=== PATIENT | female | born 1940 | race Caucasian/White ===

== ENCOUNTER 2025-05-22 09:36 | Outpatient (AMB) | payer MEDICARE, SELFPAY ==
--- NOTE | 2025-05-22 09:41 | MHC.PC.OV ---
Vital Signs 05/22/25 10:02 Height 5 ft 5.5 in Weight 139 lb 2 oz BMI 22.8 BP 178/74 H Blood Pressure Location Rt brachial Position Sitting Respiration 16 Pulse 83 Pulse Source Pulse Oximeter Temp 97.5 F Temp Source Oral Pulse Oximetry (%) 97 Oxygen Delivery Method Room Air Intake Visit Reasons: PACKING MACHINE FEEDER Hypertension Intake Note: patient here for new patient visit/ Hypertension Lamps Tester And Inspector Required: No Is last menstrual period known: No Post menopausal: No Patient : No Allergies nitrofurantoin (From Macrobid) Allergy (Intermediate, Verified 05/22/25 09:57) Itching Medication List - Last Reconciled 05/22/25 by Sheng Pinto MD amlodipine 5 mg PO DAILY losartan 50 mg PO DAILY [id number] 333-1.7 mg (Airborne (ascorbate sodium)) tabs PO naproxen sodium (Aleve) 440 mg PO DAILY Tobacco use date assessed: 05/22/25 Fall risk assessment: No Falls in past year Last assessed Fall Risk: 05/22/25 Dental Screening Dental Screen Date: 05/22/25 Did you have a dental visit in the last 12 months?: No Did you have a dental problem in the last 6 months where you did not have access to dental care?: No Was dental information given to patient?: Patient has dentist HPI PACKING MACHINE FEEDER Hypertension HPI Details New Patient? ?? Prior PCP:[facility] Last office visit/CPE:? Acute issue(s):? HTN; [place]. BP 131/82 this AM. ?? PMHx:?HTN, Valve Regurgitation - Trace. (Had seen Dr Epperson but discharged) - Due next year for Echo. Osteoarthritis. Mild Neuropathy b/L feet. Basal cell SurgHx:?Basal Cell removal [place] SocHx:? Quit cigs 1989. EtOH 1 glass per evening not every night PFSH Medical History (Updated 05/22/25 @ 10:43 by Arben Bianchi) Osteoporosis Arthritis High blood pressure Social History Housing: House Patient Tobacco Use Status: Never used Tobacco e-Cigarette/Vaping Use: Never Used Second Hand Smoke Exposure: No service: No Current occupational status: retired Current occupational exposures/hazards: No Cognitive needs: No Hearing needs: No Vision needs: Yes Questionnaire PHQ-9 Over the last 2 weeks, how often have you been bothered by any of the following problems? 1. Little interest or pleasure in doing things: not at all 2. Feeling down, depressed, or hopeless: not at all 3. Trouble falling or staying asleep, or sleeping too much: not at all 4. Feeling tired or having little energy: not at all 5. Poor appetite or overeating: not at all 6. Feeling bad about yourself - or that you are a failure or have let yourself or your family down: not at all 7. Trouble concentrating on things, such as reading the newspaper or watching television: not at all 8. Moving or speaking so slowly that other people could have noticed. Or the opposite - being so fidgety or restless that you have been moving around a lot more than usual: not at all 9. Thoughts that you would be better off or of hurting yourself in some way: not at all Total score: 0 Depression Screening Interpretation: Negative Depression Screening Done: Yes 98335 - PHQ-9 Billing: Yes Source: Developed by Drs. Adis Worthington, Sallie Sorensen, Israel Schneider and colleagues, with an educational brittani from [employer]. Thrive Questionnaire Date Thrive assessed: 05/22/25 I am a: Patient What is your living situation today?: I have a steady place to live Within the past 12 months, did the food you bought not last and you didn't have the money to get more?: Never true Within the past 12 months, did you worry whether your food would run out before you got money to buy more?: Never true Do you have trouble paying for medicines?: No Do you have trouble getting transportation to medical appointments?: No Do you have trouble paying your heating and electricity bill?: No Do you have trouble taking care of your child, family member or friend?: No Do you have trouble with day-to-day activities such as bathing, preparing meals, shopping, managing finances, etc.?: No Are you currently unemployed and looking for a job?: No Are you interested in more education?: No Please select the resources that you would like help with: None Currently or been in a relationship where the following occur: No concerns reported THRIVE Score: 0 AUDIT C Alcohol Use Questionnaire (AUDIT-C) 1. How often do you have a drink containing alcohol?: 4 or more times a week (wine with dinner) 2. How many drinks containing alcohol do you have on a typical day when you are drinking?: 1 or 2 3. How often do you have six or more drinks on one occasion?: Never Total Score: 4 Score Reviewed/Action Taken: Yes STANTON-7 AMB Questionnaire STANTON-7 Date STANTON - 7 assessed: 05/22/25 Feeling nervous, anxious, or on edge: 0 = Not at all Not being able to stop or control worryin = Not at all Worrying too much about different things: 0 = Not at all Trouble relaxin = Not at all Being so restless that it is hard to sit still: 0 = Not at all Becoming easily annoyed or irritable: 0 = Not at all Feeling afraid as if something awful might happen: 0 = Not at all Total STANTON-7 score (0-4 normal; 5-9 mild; 10-14 moderate; 15-21 severe): 0 Source: Developed by Drs. Adis Worthington, Sallie Sorensen, Israel Schneider and colleagues, with an educational brittani from [employer]. STANTON-7 Assessment Billing STANTON-7 Assessment Tool: STANTON-7 Assessment 14928 Review of Systems Const Denies chills, Denies fatigue, Denies fever(s), Denies headache(s) and Denies weakness ENT Denies dizziness and Denies headache(s) Card Denies chest pain, Denies lightheadedness, Denies dyspnea and Denies other (Palpitations) Resp Denies cough, Denies dyspnea, Denies wheezing and Denies other ( shortness of breath) Musc Denies numbness and Denies tingling Neuro Denies dizziness, Denies headache(s), Denies numbness, Denies tingling, Denies paresthesias and Denies weakness Psych Denies anxiety and Denies depression Endo Denies fatigue Aller/Immun Denies wheezing Physical exam (Primary Care) Vital Signs: Last Vital Signs Temp 97.5 F 05/22/25 10:02 Pulse 83 05/22/25 10:02 Resp 16 05/22/25 10:02 BP 178/74 H 05/22/25 10:02 Pulse Ox 97 05/22/25 10:02 Oxygen Delivery Method Room Air 05/22/25 10:02 BMI result Body Mass Index 22.8 Tobacco/Smoking Status: Tobacco use Status Tobacco use date assessed 05/22/25 05/22/25 10:01 Patient Tobacco Use Status Never used Tobacco 05/22/25 10:01 e-Cigarette/Vaping Use Never Used 05/22/25 10:01 PHQ-9: PHQ-9 Score PHQ-9: Total score 0 05/22/25 10:16 Depression Screening Interpretation: Negative Thrive Assessment: Date of Thrive Assessment Date Thrive assessed 05/22/25 05/22/25 10:10 Currently or been in a relationship where the following occur: No concerns reported Const General: no acute distress and well developed Nutritional Appearance: well nourished Orientation/consciousness: patient oriented x3 HENMT Head: Yes normocephalic and Yes atraumatic Eyes General: appearance normal, both eyes and all related structures Pupils: Equal, round and reactive pupils present EOM: EOMs intact bilaterally Resp Effort & Inspection: normal respiratory effort Auscultation: clear to auscultation bilaterally Cardio Rate: regular rate Rhythm: regular rhythm Heart sounds: S1 normal heart sound present, S2 normal heart sound present, no gallops, Murmur heart sound present and no rubs Neuro General: patient oriented x3 and gait normal Cranial nerves: Yes Equal, round and reactive pupils present Extrem Other: LE edema, trace edema R, 1+ edema L Psych Affect: normal affect Coding Level of Care Code New Pt Level 4 (40474) Diagnoses White coat syndrome with diagnosis of hypertension I10 High blood pressure I10 Heart valve regurgitation I38 Heart murmur R01.1 Osteoarthritis M19.90 History of basal cell cancer Z85.828 Lower extremity edema R60.0 Neuropathy G62.9 Laboratory exam ordered as part of routine general medical examination Z00.00 Additional Codes STANTON-7 Assessment Billing - STANTON-7 Assessment Tool: STANTON-7 Assessment 24812 ([id number]) PHQ-9 - 13948 - PHQ-9 Billing: Yes ([id number]) Assessment & Plan Assessment & Plan (1) White coat syndrome with diagnosis of hypertension: Code(s): I10 - Essential (primary) hypertension Category: Medical Plan: Blood pressure is high and patient notes that it is always high when she goes to the doctor's. She checks her blood pressures at home and typically they run around 130s/80s. She will bring in a log of blood pressures No changes to her blood pressure medication regimen today. I did ask her to continue monitoring her blood pressure at home and if blood pressures are higher than 140s/90s she should let me know would discuss adjusting her medication regimen. (2) High blood pressure: Code(s): I10 - Essential (primary) hypertension Category: Medical Plan: As above (3) Heart valve regurgitation: Code(s): I38 - Endocarditis, valve unspecified Category: Medical Plan: History of heart valve regurgitation. Patient was being followed with echocardiograms 3 years and is due next year. Echo ordered for next year (4) Heart murmur: Code(s): R01.1 - Cardiac murmur, unspecified Category: Medical Plan: Mild heart murmur As above the she as mild regurgitation and is followed with echocardiogram (5) Osteoarthritis: Code(s): M19.90 - Unspecified osteoarthritis, unspecified site Category: Medical Plan: Uses NSAIDs Stable (6) History of basal cell cancer: Code(s): Z85.828 - Personal history of other malignant neoplasm of skin Category: Medical Plan: Followed by [facility] Follow-up as recommended (7) Lower extremity edema: Code(s): R60.0 - Localized edema Category: Medical Plan: Mild lower extremity edema, 1+ on left and trace edema on right Advised watching salt in sodium in diet Advised elevating legs (8) Neuropathy: Code(s): G62.9 - Polyneuropathy, unspecified Category: Medical Plan: Patient notes some tingling and burning in her feet Unclear cause and checking labs May also be related to her lower extremity edema and I have advised her to elevate her legs more during her daytime. (9) Laboratory exam ordered as part of routine general medical examination: Code(s): Z00.00 - Encounter for general adult medical examination without abnormal findings Category: Medical Plan: Check labs Orders: Orders Microalbumin, Random (w Creat) Today I10 - Essential (primary) hypertension Lipid Panel Today Z00.00 - Encounter for general adult medical examination without abnormal findings UA CC w/rflx Micro + Cult Today Z00.00 - Encounter for general adult medical examination without abnormal findings Complete Blood Count Auto Diff Today Z00.00 - Encounter for general adult medical examination without abnormal findings Vitamin B12 and Folate Today E53.8 - Deficiency of other specified B group vitamins CA echo transthoracic complete 8 Months I38 - Endocarditis, valve unspecified Comprehensive [place]. Panel Fast Today Z00.00 - Encounter for general adult medical examination without abnormal findings TSH reflex Free T4 Today Z00.00 - Encounter for general adult medical examination without abnormal findings Vitamin D 25-OH Total Today E55.9 - Vitamin D deficiency, unspecified IRON PROFILE Today G62.9 - Polyneuropathy, unspecified Ferritin Today G62.9 - Polyneuropathy, unspecified
[2025-05-22 10:02] VITALS: BP 178/74; PULSE 83; RESP 16; TEMP 36.4; O2SAT 97; BMI 22.8
--- OUTSIDE RECORDS SUMMARY | 2025-05-22 10:37 | XMS_ITS | Clinical Summary ---
Author Organization [facility] Address [address] [address] Phone Care Team Providers Care Cellular Phone Repairer Name Role Phone Georges Cool MD Primary Care Provider + Allergies Active Allergy Reactions Criticality Noted Date Comments Nitrofurantoin 06/02/2023 Nitrofurantoin Monohyd/M-Cryst Rash Low 06/02 Medications amLODIPine (NORVASC) 5 MG tablet Take 1 tablet by mouth every morning. 05/24/2023 Active losartan (COZAAR) 25 MG tablet Take 1 tablet by mouth every morning. 05/03/2023 Active naproxen sodium (ALEVE) 220 MG tablet Take 220 mg by mouth 2 (two) times a day with meals. Active Active Problems Problem Noted Date Diagnosed Date Allergic rhinitis 06/02/2023 06/02/2023 Anxiety disorder 06/02/2023 06/02/2023 Aortic valve regurgitation 06/02/202306/02 Basal cell carcinoma (BCC) 06/02/202306/02 Benign colonic polyp 06/02/2023 06/02/2023 Benign paroxysmal positional vertigo 06/02/2023 06/02/2023 Cataract 06/02/2023 06/02/2023 Chronic obstructive pulmonary disease 06/02/2023 06/02/2023 Heartburn 06/02/2023 06/02/2023 Hemorrhoids 06/02/2023 06/02/2023 Hypercholesterolemia 06/02/2023 06/02/2023 Hypertension 06/02/2023 06/02/2023 Osteoarthritis of both knees 06/02/2023 Osteoporosis 06/02/2023 06/02/2023 Venous stasis dermatitis 06/02/2023 023 Syncope and collapse 06/02/2023 06/02/2023 Peripheral nerve disease 06/02/2023 023 Social History Tobacco Use Types Packs/Day Years Used Date Smoking Tobacco: Former Cigarettes Smokeless Tobacco: Never Tobacco Cessation:Counseling Given: Not Answered Education Answer Date Recorded Are you interested in more education? Not on larry e 06/02/2023 Are you concerned about learning? Not on file 06/02/2023 No 06/02/2023 No 06/02/2023 Digital Access Answer Date Recorded No 06/02/2023 No 06/02/2023 Reliable internet access at home? Not on file 06/02/2023 Device with a working camera? Not on file Comments Unknown Sex and Gender Information Value Date Recorded Sex Assigned at Not on file Legal Sex Female 4:30 PM EDT Gender Identity Not on file Sexual Orientation Not on file Last Filed Vital Signs Vital Sign Reading Time Taken Comments Blood Pressure 182/81 06/02/2023 5:27 PM EDT Pulse 81 06/02/2023 5:27 PM EDT Temperature 37.1 C (98.8 F) 06/02/2023 5:27 PM EDT Respiratory Rate 16 06/02/2023 5:27 PM EDT Oxygen Saturation 97% 06/02/2023 5:27 PM EDT Inhaled Oxygen Concentration - - Weight - - Height - - Body Mass Index - - Plan of Treatment Health Maintenance Due Date Last Done Comments Adult Td,Tdap Booster 1940 CREATININE LEVEL 1940 POTASSIUM LEVEL 1940 DEPRESSION SCREENING 1952 ZOSTER VACCINES (1 of 2) 01/28/1990 OSTEOPOROSIS SCREENING INITIAL (ONE-TIME) 01/28/2005 RSV VACCINE (1 - 1-dose 75+ series) 01/28/2015 PNEUMOCOCCAL VACCINES (50+ years) (2 of 2 - PPSV23) 08/25/2016 06/30/2016 BLOOD PRESSURE 12/02/2023 06/02/2023 INFLUENZA VACCINE (#1) 2025 , 05/27/2021, 05/12/2020, Additional history exists COVID-19 VACCINE (3 - season) 2025 12/11/2020, 11/19/2020 HEPATITIS A VACCINES Aged Out No long er eligible based on patient's age to complete this topic HIB VACCINES Aged Out No longer eligi ble based on patient's age to complete this topic MENINGOCOCCAL VACCINES (ACWY) Aged Out No longer eligible based on patient's age to complete this topic MENINGOCOCCAL VACCINES (B) Aged Out N o longer eligible based on patient's age to complete this topic Medical Devices Not on file Insurance [employer] MEDEX SUPPLEMENT MEDICARE PART A & B [employer] MEDEX SUPPLEMENT MEDICARE PART A & B [employer] MEDEX SUPPLEMENT MEDICARE PART A & B [employer] MEDEX SUPPLEMENT MEDICARE PART A & B MEDICARE PART A & B [employer] MEDEX SUPPLEMENT MEDICARE PART A & B Care Teams Cellular Phone Repairer Relationship Specialty Start Date End Date Georges Cool MD [address] [place] [id number] PCP - General Internal Medicine 06/02/23 Additional Source Comments The information contained in this document represents components of the legal health record. It is not the complete legal health record.[facility]
--- OUTSIDE RECORDS SUMMARY | 2025-05-22 10:38 | XMS_ITS | Data Portability ---
Author Organization [facility], [employer] Address [address] [place] [address] Care Team Providers Care Geomatics Professor Name Role Phone PAPO NIETO Primary Care Provider Assessment No assessment recorded. Plan of Treatment Reminders Order Date Submit Date Provider Last Modified By Organization Details Last Modified Time Details Appointments None record ed. Lab None record ed. Referral None record ed. Procedures None record ed. Surgeries None record ed. Imaging None record ed. Medication Orders None record ed. Patient TargetsNo targets recorded. Patient InstructionsNo instructions recorded. Reason for Referral None Reported. Problems Name Problem SNOMED Code Status Onset Date Resolution Date Notes Provider Name and Address Organization Details Recorded Time Pain of joint of knee 5866680584 Active 2021 Status : 'A'; Not Available [facility] 4 11:58:38 Primary gonarthrosi s, bilateral 139076010 Active 2024 Carly Javed PA-C [address], [place], [address] , [facility] 5 15:32:27 Problem Notes None recorded. Procedures Surgical History Date Name Laterality Status Provider Name and Address Organization Details Recorded Time 5 Knee Kenalog 40 1cc Injection, Bilateral completed Carly Javed PA-C [address], [place], [address], [facility] 12/11/2024 15:32:28 4 Knee Kenalog 40 1cc Injection, Bilateral completed Carly Javed PA-C [address], [place], [address], [facility] 06/13/2024 10:42:03 4 Sports Knee 4&1 completed Carly Javed PA-C [address], [place], [address], [facility] 12/18/2023 12:15:21 Imaging Results None recorded. Procedure Notes None recorded. Medical Equipment None Reported. Allergies Allergen ID Allergen Name Allergen Category Reaction Reaction Severity Criticality Documentation Date Start Date Code Code System Note Provider Name and Address Organization Details Recorded Time 40908 Macrobid medicatio n Not available Not available Not available 10/23/20232020 67045 1 RxNorm Not Available [facility] 12:44:46 Medications Name Sig Start Date Stop Date Status Note LastModified by Organization Details LastModified Time losartan 50 mg tablet TAKE 1 TABLET BY MOUTH DAILY active Not Available Not Available No t Available amoxicillin 500 mg capsule TAKE 1 CAPSULE BY MOUTH THREE TIMES DAILY FOR 7 DAYS. MAY HAVE EXTRA 05/02 completed Not Available Not Available Not Available clobetasol 0.05 % topical cream APPLY TOPICALLY TO THE AFFECTED AREA TWICE DAILY active Not Available Not Available No t Available amlodipine 5 mg tablet TAKE 1 TABLET BY MOUTH DAILY active Not Available Not Available No t Available losartan 25 mg tablet TAKE 1 TABLET BY MOUTH DAILY active Not Available Not Available No t Available cephalexin 500 mg tablet TAKE 1 TABLET BY MOUTH TWICE DAILY FOR 10 DAYS 05/02 completed Not Available Not Available Not Available mupirocin 2 % topical ointment APPLY TOPICALLY TO THE AFFECTED AREA 1 TO 2 TIMES DAILY UNTIL HEALED active Not Available Not Available No t Available Vitals Date Recorded Body height Body mass index (BMI) Body weight Provider Name and Address Organization Details Last Updated DateTime 12/11/2024 165.1 cm 23 kg/m2 04454.75 g ysabel covarrubias [facility] 12/11/2024 15:23:02 Date Recorded Body height Body mass index (BMI) Body weight Provider Name and Address Organization Details Last Updated DateTime 12/18/2023 165.1 cm 23 kg/m2 79174.75 g claudia reveles [facility] 12/18/2023 11:27:35 Date Recorded Body height Body mass index (BMI) Body weight Provider Name and Address Organization Details Last Updated DateTime 05/02/2024 165.1 cm 23 kg/m2 51647.75 g [facility] 05/02/2024 15:26:56 Date Recorded Body height Body mass index (BMI) Body weight Provider Name and Address Organization Details Last Updated DateTime 06/13/2024 165.1 cm 23 kg/m2 07405.75 g [facility] 06/13/2024 10:04:53 Social History None recorded. Functional Status None recorded. Mental Status None recorded. Family History Nothing Reported. Medical History No medical history recorded. Gynecological HistoryNo gynecological history recorded. Obstetrics History GPAL:G 0 P 0 0 0 0 Past Encounters Encounter ID Performer Location Encounter Start Date Encounter Closed Date Diagnosis/Indication Diagnosis SNOMED-CT Code Diagnosis ICD10 Code Diagnosis IMO Codes Diagnosis Note [id number] Carly Javed PA-C [facility] [address] [place] [address] 12/18/2023 11:12:18 01/05/2024 05:43:51 Osteoarthritis of right knee joint 7769473597 96739 M17.11 [id number] Carly Javed PA-C [facility] [address] [place] [place] [address] 05/02/2024 15:12:42 05/24/2024 10:03:42 Osteoarthritis of right knee joint 8987297962 06970 M17.11 [id number] Carly Javed PA-C [facility] [address] [place] [address] 06/13/2024 09:48:04 07/09/2024 12:36:08 Primary gonarthrosis, bilateral 570704344 M17.0 [id number] Carly Javed PA-C [facility] [address] [place] [address] 12/11/2024 15:13:10 12/19/2024 10:40:18 Primary gonarthrosis, bilateral [id number] M17.0 [id number] Health Concerns Section Related Observation LastModified by Organization Detai ls LastModified Time None Recorded Concern Status LastModified by Organization Details LastModified Time None Recorded Advance Directives Directive None Recorded Payers Insurance Date Sequence Insurance Name Policy Number Policy Mejia Covered Member ID Mejia Member ID Guarantor Name 12/19/2024 2 [place] [id number] Missy Lema [id number] Missy Lema 12/11/2024 1 [place] B[place] [facility] [employer] Missy Lema [id number] Missy Lema Notes Date Note Type Note Provider Name and Address Organization Details Recorded Time 12/18/2023 text/html I am seeing the patient today under the supervision of Dr. Childers who was available but who did not see the patient. HPI: Patient presenting today with known osteoarthritis of the right knee. Has been responding favorably to conservative treatment. Here today for a cortisone injection. Denies recent injury. No new systemic complaints. Past family, medical, social history and review of systems has been reviewed, updated, and is located in the patient s chart. Examination: Examination of the right knee reveals no effusion, erythema, or warmth. Injection site benign. Decreased range of motion. Point tender medial joint line. Calf is soft and nontender. 5/5 strength knee flexion and extension. Impression: Right knee osteoarthritis Plan: The patient was thoroughly counseled today regarding their knee condition, its natural history, and conservative versus surgical treatment options. The patient is interested in receiving an injection with corticosteroid. The right knee was prepped sterilely and an injection was administered utilizing 40mg of Kenalog and 4cc of 0.25% Marcaine. The patient tolerated the procedure well. Post-injection precautions were discussed. Recommended avoiding strenuous activity over the next 24-48 hours. Encouraged elevation of the leg, applying ice, and taking over the counter medication as needed. The patient is aware that the injection can be repeated as often as every 3 months. Carly Javed PA-C [address] [place], [place] [address] [address], [place], [address], [facility] 12/18/2023 12:17:57 05/02/2024 text/html I am seeing the patient today under the supervision of Dr. Manzanares who was available but who did not see the patient. HPI: Patient presenting today with known osteoarthritis of the right knee. Has been responding favorably to conservative treatment. Her last cortisone injection was in November. Although she is scheduled to receive a repeat injection today, she does not feel as if she needs it. She prefers to postpone her injection to May prior to leaving for [place]. Past family, medical, social history and review of systems has been reviewed, updated, and is located in the patient s chart. Examination: Examination of the right knee reveals no effusion, erythema, or warmth. Injection site benign. Decreased range of motion. Point tender medial joint line. Calf is soft and nontender. 5/5 strength knee flexion and extension. Impression: Right knee osteoarthritis Plan: The patient will return to the office in May in order to have her cortisone injection performed. She has minimal knee discomfort today therefore has declined her injection. All questions answered. Carly Javed PA-C [address] [place] [address] [address] [facility], [place], [address], [facility] [facility] 05/02/2024 15:54:03 06/13/2024 text/html I am seeing the patient today under the supervision of Dr. Manzanares who was available but who did not see the patient. HPI: Patient presenting today with known osteoarthritis of bilateral knees. Has been responding favorably to conservative treatment. Here today for a cortisone injection. Denies recent injury. No new systemic complaints. Last injection was in November. Past family, medical, social history and review of systems has been reviewed, updated, and is located in the patient s chart. Examination: Examination of bilateral knees reveals no effusion, erythema, or warmth. Injection site benign. Decreased range of motion. Point tender medial joint line. Calf is soft and nontender. 5/5 strength knee flexion and extension. Impression: Bilateral knee osteoarthritis Plan: The patient was thoroughly counseled today regarding their knee condition, its natural history, and conservative versus surgical treatment options. The patient is interested in receiving an injection with corticosteroid. Bilateral knees were prepped sterilely and an injection was administered utilizing 40mg of Kenalog and 4cc of 0.25% Marcaine. The patient tolerated the procedure well. Post-injection precautions were discussed. Recommended avoiding strenuous activity over the next 24-48 hours. Encouraged elevation of the leg, applying ice, and taking over the counter medication as needed. The patient is aware that the injection can be repeated as often as every 3 months. Carly Javed PA-C [address], [place], [address], [facility] 06/13/2024 10:42:36 12/11/2024 text/html I am seeing the patient today under the supervision of Dr. Matos who was available but who did not see the patient. HPI: Patient presenting today with known osteoarthritis of bilateral knees. Has been responding favorably to conservative treatment. Here today for a cortisone injection. Denies recent injury. No new systemic complaints. Last injection was in November. Past family, medical, social history and review of systems has been reviewed, updated, and is located in the patient s chart. Examination: Examination of bilateral knees reveals no effusion, erythema, or warmth. Injection site benign. Decreased range of motion. Point tender medial joint line. Calf is soft and nontender. 5/5 strength knee flexion and extension. Impression: Bilateral knee osteoarthritis Plan: The patient was thoroughly counseled today regarding their knee condition, its natural history, and conservative versus surgical treatment options. The patient is interested in receiving an injection with corticosteroid. Bilateral knees were prepped sterilely and an injection was administered utilizing 40mg of Kenalog and 4cc of 0.25% Marcaine. The patient tolerated the procedure well. Post-injection precautions were discussed. Recommended avoiding strenuous activity over the next 24-48 hours. Encouraged elevation of the leg, applying ice, and taking over the counter medication as needed. The patient is aware that the injection can be repeated as often as every 3 months. Carly Javed PA-C [address], [place], [address], [facility] 12/11/2024 15:46:10 OBGyn Episode No OBEpisode recorded.
== END 2025-05-22 10:42 | disposition home or self-care (01) ==
PROVIDERS: PCP Family Medicine; Visit Provider Family Medicine
DX: I10 Essential (primary) hypertension (principal); I38 Endocarditis, valve unspecified; R01.1 Cardiac murmur, unspecified; M19.90 Unspecified osteoarthritis, unspecified site; Z85.828 Personal history of other malignant neoplasm of skin; R60.0 Localized edema; G62.9 Polyneuropathy, unspecified; Z00.00 Encounter for general adult medical examination without abnormal findings

== ENCOUNTER → 2025-05-22 09:36 | Outpatient (BNVA) | payer MEDICARE, SELFPAY | PROVIDERS: PCP Family Medicine; Visit Provider Family Medicine | DX: Z00.00 Encounter for general adult medical examination without abnormal findings (principal); I10 Essential (primary) hypertension; I38 Endocarditis, valve unspecified; R01.1 Cardiac murmur, unspecified; M19.90 Unspecified osteoarthritis, unspecified site; R60.0 Localized edema; G62.9 Polyneuropathy, unspecified; Z85.828 Personal history of other malignant neoplasm of skin | CPT/HCPCS: 96127; 99202 ==

== ENCOUNTER 2025-06-18 10:11 | Outpatient (AMB) | payer MEDICARE, SELFPAY ==
--- NOTE | 2025-06-18 09:29 | A.OFFPC_ITS ---
Vital Signs 06/18/25 10:20 Height 5 ft 5.5 in Weight 137 lb 8 oz BMI 22.5 BP 146/80 H Blood Pressure Location Rt brachial Position Sitting Respiration 16 Pulse 88 Pulse Source Pulse Oximeter Temp 98.3 F Temp Source Temporal Artery Scan Pulse Oximetry (%) 95 Oxygen Delivery Method Room Air Intake Visit Reasons: f/u CPE-labs Intake Note: Missy presents in the office today for her annual physical and review of her lab results. Allergies nitrofurantoin (From Macrobid) Allergy (Intermediate, Verified 06/18/25 10:19) Itching Medication List - Last Reconciled 06/18/25 by Sheng Pinto MD amlodipine 5 mg PO DAILY losartan 50 mg PO DAILY [id number] 333-1.7 mg (Airborne (ascorbate sodium)) tabs PO naproxen sodium (Aleve) 440 mg PO DAILY Tobacco use date assessed: 06/18/25 Fall risk assessment: No Falls in past year Last assessed Fall Risk: 06/18/25 Dental Screening Dental Screen Date: 06/18/25 Did you have a dental visit in the last 12 months?: Yes Did you have a dental problem in the last 6 months where you did not have access to dental care?: No Was dental information given to patient?: Patient has dentist HPI f/u CPE-labs HPI Details 85 y/o female presents to f/u labs. Blood pressure today 146/80, 88p. She is on amlodipine 5mg, losartan 50mg daily. Pt notes she had labs drawn at [facility] around 2 weeks ago. Has complaints of mild LE edema with complaints of venous stasis dermatitis, L worse than R. PFSH Medical History (Updated 06/18/25 @ 11:01 by Arben Bianchi) Osteoporosis Arthritis High blood pressure Social History (Updated 06/18/25 @ 10:20 by Ene Krishnan [facility]) Housing: House Alcohol intake: never Patient Tobacco Use Status: Never used Tobacco e-Cigarette/Vaping Use: Never Used Second Hand Smoke Exposure: No Use of substances other than those prescribed or required for medical reasons: No service: No Current occupational status: retired Current occupational exposures/hazards: No Cognitive needs: No Hearing needs: No Vision needs: Yes Questionnaire PHQ-9 Over the last 2 weeks, how often have you been bothered by any of the following problems? 1. Little interest or pleasure in doing things: more than half the days 2. Feeling down, depressed, or hopeless: several days 3. Trouble falling or staying asleep, or sleeping too much: more than half the days 4. Feeling tired or having little energy: more than half the days 5. Poor appetite or overeating: several days 6. Feeling bad about yourself - or that you are a failure or have let yourself or your family down: more than half the days 7. Trouble concentrating on things, such as reading the newspaper or watching television: several days 8. Moving or speaking so slowly that other people could have noticed. Or the opposite - being so fidgety or restless that you have been moving around a lot more than usual: several days 9. Thoughts that you would be better off or of hurting yourself in some way: several days Total score: 13 Depression Screening Interpretation: Positive Depression Screening Done: Yes 78344 - PHQ-9 Billing: Yes Source: Developed by Drs. Adis Worthington, Sallie Sorensen, Israel Schneider and colleagues, with an educational brittani from [employer]. Thrive Questionnaire Date Thrive assessed: 06/18/25 I am a: Patient What is your living situation today?: I have a steady place to live Within the past 12 months, did the food you bought not last and you didn't have the money to get more?: Never true Within the past 12 months, did you worry whether your food would run out before you got money to buy more?: Never true Do you have trouble paying for medicines?: No Do you have trouble getting transportation to medical appointments?: No Do you have trouble paying your heating and electricity bill?: No Do you have trouble taking care of your child, family member or friend?: No Do you have trouble with day-to-day activities such as bathing, preparing meals, shopping, managing finances, etc.?: No Are you currently unemployed and looking for a job?: No Are you interested in more education?: No Please select the resources that you would like help with: None Currently or been in a relationship where the following occur: I choose not to answer THRIVE Score: 0 AUDIT C Alcohol Use Questionnaire (AUDIT-C) 1. How often do you have a drink containing alcohol?: Never Total Score: 0 STANTON-7 AMB Questionnaire STANTON-7 Date STANTON - 7 assessed: 06/18/25 Feeling nervous, anxious, or on edge: 2 = More than half the days Not being able to stop or control worryin = Several days Worrying too much about different things: 1 = Several days Trouble relaxin = More than half the days Being so restless that it is hard to sit still: 1 = Several days Becoming easily annoyed or irritable: 2 = More than half the days Feeling afraid as if something awful might happen: 2 = More than half the days Total STANTON-7 score (0-4 normal; 5-9 mild; 10-14 moderate; 15-21 severe): 11 Source: Developed by Drs. Adis Worthington, Sallie Sorensen, Israel Schneider and colleagues, with an educational brittani from [employer]. STANTON-7 Assessment Billing STANTON-7 Assessment Tool: STANTON-7 Assessment 69590 Review of Systems Const Denies chills, Denies fatigue, Denies fever(s), Denies headache(s) and Denies weakness ENT Denies dizziness and Denies headache(s) Card Denies dyspnea Resp Denies cough, Denies dyspnea, Denies wheezing and Denies other (shortness of breath) Musc Denies numbness and Denies tingling Neuro Denies dizziness, Denies headache(s), Denies numbness, Denies tingling and Denies weakness Psych Denies anxiety and Denies depression Endo Denies fatigue Aller/Immun Denies wheezing Physical exam (Primary Care) Vital Signs: Last Vital Signs Temp 98.3 F 06/18/25 10:20 Pulse 88 06/18/25 10:20 Resp 16 06/18/25 10:20 BP 146/80 H 06/18/25 10:20 Pulse Ox 95 06/18/25 10:20 Oxygen Delivery Method Room Air 06/18/25 10:20 BMI result Body Mass Index 22.5 Tobacco/Smoking Status: Tobacco use Status Tobacco use date assessed 06/18/25 06/18/25 10:22 Patient Tobacco Use Status Never used Tobacco 06/18/25 10:20 e-Cigarette/Vaping Use Never Used 06/18/25 10:20 PHQ-9: PHQ-9 Score PHQ-9: Total score 13 06/18/25 10:39 Depression Screening Interpretation: Positive Thrive Assessment: Date of Thrive Assessment Date Thrive assessed 06/18/25 06/18/25 10:18 Currently or been in a relationship where the following occur: I choose not to answer Const General: well developed; No acute distress Nutritional Appearance: well nourished Orientation/consciousness: patient oriented x3 HENMT Head: Yes normocephalic and Yes atraumatic Eyes General: appearance normal, both eyes and all related structures Pupils: Equal, round and reactive pupils present EOM: EOMs intact bilaterally Resp Effort & Inspection: normal respiratory effort Neuro General: patient oriented x3 and gait normal Cranial nerves: Yes Equal, round and reactive pupils present Extrem Other: mild LE edema with complaints of venous stasis dermatitis, L worse than R. Psych Affect: normal affect Coding Level of Care Code Est Pt Level 3 (15661) Diagnoses High blood pressure I10 Varicose vein of leg I83.90 Lower extremity edema R60.0 Additional Codes STANTON-7 Assessment Billing - STANTON-7 Assessment Tool: STANTON-7 Assessment 90401 ([id number]) PHQ-9 - 69216 - PHQ-9 Billing: Yes ([id number]) Assessment & Plan Assessment & Plan (1) High blood pressure: Code(s): I10 - Essential (primary) hypertension Category: Medical Plan: Blood pressure elevated in office and patient has noted white coat syndrome. Systolic Blood pressures at home typically in the 130s. Fair control. Given her heart valve issues, would recommend goal of less than 130/80. She also notes blood pressures in this range as well. Continue current medication regimen and continue monitoring blood pressures at home. She will let me know if blood pressures are consistently high at home. (2) Varicose vein of leg: Code(s): I83.90 - Asymptomatic varicose veins of unspecified lower extremity Category: Medical (3) Lower extremity edema: Code(s): R60.0 - Localized edema Category: Medical Plan Ongoing lower extremity edema with varicosities and venous stasis dermatitis. Encouraged elevation of legs and avoidance of salt and sodium Recommended compression stockings though patient does not want to use these. She also has intermittent paresthesias of the lower extremities which may be due to alternation between edema and resolution - avoid allowing for lower extremity edema by elevating legs etc. see above. Checking labs which are not available to me today and will discuss these when I obtain them.
[2025-06-18 10:20] VITALS: BP 146/80; PULSE 88; RESP 16; TEMP 36.8; O2SAT 95; BMI 22.5
--- OUTSIDE RECORDS SUMMARY | 2025-06-18 12:38 | XMS_ITS | Data Portability ---
Author Organization [facility], [facility] Address [address] [place] [address] Care Team Providers Care Time Motion Analyst Name Role Phone PAPO NIETO Primary Care [...] Recorded Time Pain of joint of knee 2076768995 Active 2021 Status : 'A'; Not Available [facility] 4 11:58:38 Primary gonarthrosi s, bilateral 862141265 Active 2024 Carly Javed PA-C [address], [place], [address] , [facility] 5 15:32:27 Problem Notes None recorded. Procedures Surgical History Date Name Laterality Status Provider Name and Address Organization Details Recorded Time 5 Knee Kenalog 40 1cc Injection, Bilateral completed Carly Javed PA-C [address], [place], [address], [facility] 12/11/2024 15:32:28 4 Knee Kenalog 40 1cc Injection, Bilateral completed Carly Javed PA-C [address], [place], [address], [facility] 06/13/2024 10:42:03 4 Sports Knee 4&1 completed Carly Javed PA-C [address], [place], [address], [facility] 12/18/2023 12:15:21 Imaging Results None recorded. Procedure Notes None recorded. Medical Equipment None Reported. Allergies Allergen ID Allergen Name Allergen Category Reaction Reaction Severity Criticality Documentation Date Start Date Code Code System Note Provider Name and Address Organization Details Recorded Time 46709 Macrobid medicatio n Not available Not available Not available 10/23/20232020 42995 1 RxNorm Not Available [facility] 12:44:46 Medications Name Sig Start Date Stop [...] Updated DateTime 12/11/2024 165.1 cm 23 kg/m2 27618.75 g ysabel covarrubias [facility] 12/11/2024 15:23:02 Date Recorded Body height Body mass index (BMI) Body weight Provider Name and Address Organization Details Last Updated DateTime 12/18/2023 165.1 cm 23 kg/m2 50770.75 g claudia reveles [facility] 12/18/2023 11:27:35 Date Recorded Body height Body mass index (BMI) Body weight Provider Name and Address Organization Details Last Updated DateTime 05/02/2024 165.1 cm 23 kg/m2 59511.75 g [facility] 05/02/2024 15:26:56 Date Recorded Body height Body mass index (BMI) Body weight Provider Name and Address Organization Details Last Updated DateTime 06/13/2024 165.1 cm 23 kg/m2 06534.75 g [facility] 06/13/2024 10:04:53 Social History None recorded. Functional Status None recorded. Mental Status None recorded. Family History Nothing Reported. Medical History No medical history recorded. Gynecological HistoryNo gynecological history recorded. Obstetrics History GPAL:G 0 P 0 0 0 0 Past Encounters Encounter ID Performer Location Encounter Start Date Encounter Closed Date Diagnosis/Indication Diagnosis SNOMED-CT Code Diagnosis ICD10 Code Diagnosis IMO Codes Diagnosis Note [id number] Carly Javed PA-C [facility] [address] [place] [place] [address] 12/18/2023 11:12:18 01/05/2024 05:43:51 Osteoarthritis of right knee joint 5845964446 17700 M17.11 [id number] Carly Javed PA-C [facility] [address] [place] [place] [address] 05/02/2024 15:12:42 05/24/2024 10:03:42 Osteoarthritis of right knee joint 7428220302 93846 M17.11 [id number] Carly Javed PA-C [facility] [address] [place] [address] 06/13/2024 09:48:04 07/09/2024 12:36:08 Primary gonarthrosis, bilateral 977671039 M17.0 3823611 [id number] Carly Javed PA-C [facility] [address] [place] [place] [address] 12/11/2024 15:13:10 12/19/2024 10:40:18 Primary gonarthrosis, bilateral 396425527 M17.0 [id number] Health Concerns Section Related Observation LastModified by Organization Detai ls LastModified Time None Recorded Concern Status LastModified by Organization Details LastModified Time None Recorded Advance Directives Directive None Recorded Payers Insurance Date Sequence Insurance Name Policy Number Policy Mejia Covered Member ID Mejia Member ID Guarantor Name 12/19/2024 2 [place] [id number] Missy Lema [id number] Missy Lema 12/11/2024 1 [place] [facility] [employer] Missy Lema [id number] Missy Lema Notes Date Note Type [...] as every 3 months. Carly Javed PA-C [address] [place], [place] [address] [address], [place], [address], [facility] 12/18/2023 12:17:57 05/02/2024 text/html [...] injection to May prior to leaving for [place]. Past family, medical, social history and review [...] injection. All questions answered. Carly Javed PA-C [address] [place] [address] Suite [facility], [place], [address], [facility] 05/02/2024 15:54:03 06/13/2024 text/html I am [...] every 3 months. Carly Javed PA-C [address], [place], [address], [facility] 06/13/2024 10:42:36 12/11/2024 text/html I am [...] every 3 months. Carly Javed PA-C [address], [place], [address], [facility] 12/11/2024 15:46:10 OBGyn Episode No OBEpisode recorded.
--- OUTSIDE RECORDS SUMMARY | 2025-06-18 12:38 | XMS_ITS | Clinical Summary ---
Author Organization [facility] Address [address] [address] Phone Care Team Providers Care Sales And Marketing Associate Name Role Phone Georges Cool MD Primary [...] topic Medical Devices Not on file Insurance [employer] SUPPLEMENT MEDICARE PART A & B [employer] SUPPLEMENT MEDICARE PART A & B [employer] SUPPLEMENT MEDICARE PART A & B [employer] SUPPLEMENT MEDICARE PART A & B MEDICARE PART A & B [employer]EX SUPPLEMENT MEDICARE PART A & B Care Teams Sales And Marketing Associate Relationship Specialty Start Date End Date Georges Cool MD [address] [place] [id number] PCP - General Internal Medicine 06/02/23 Additional Source Comments The information contained in this document represents components of the legal health record. It is not the complete legal health record.[facility]
== END 2025-06-18 11:04 | disposition home or self-care (01) ==
LOC: HO.HMCFM 10:12
PROVIDERS: PCP Family Medicine; Visit Provider Family Medicine
DX: I10 Essential (primary) hypertension (principal); I83.90 Asymptomatic varicose veins of unspecified lower extremity; R60.0 Localized edema

== ENCOUNTER → 2025-06-18 10:11 | Outpatient (BNVA) | payer MEDICARE, SELFPAY | PROVIDERS: PCP Family Medicine; Visit Provider Family Medicine | DX: I10 Essential (primary) hypertension (principal); I83.90 Asymptomatic varicose veins of unspecified lower extremity; R60.0 Localized edema; Z13.31 Encounter for screening for depression; Z13.39 Encounter for screening examination for other mental health and behavioral disorders | CPT/HCPCS: 96127; 99212 ==